=== PATIENT | male | born 1960 | race Caucasian/White ===

== ENCOUNTER 2016-09-02 12:57 | Emergency (ER) | payer BC ==
[~2016-09-02] VITALS: Ht 175.3 cm; Wt 80.0 kg
[2016-09-02 13:06] VITALS: BP 128/66; PULSE 46; RESP 16; TEMP 97.8; O2SAT 100
[2016-09-02] MEDS ORDERED: AVOD0.5C PO (13:13)
[2016-09-02] MEDS ORDERED: TRAZ50TA12 PO (13:13)
[2016-09-02] MEDS ORDERED: VENL75TA2 PO (13:13)
[2016-09-02] MEDS ORDERED: SODIUM CHLOR 0.9% 1000 ML INJ 1,000 ML IV SCH (13:42)
[2016-09-02] MEDS ORDERED: SODIUM CHLORIDE 0.9% FLUSH 10 ML FLUSH IV FLUSH PRN (13:45)
[2016-09-02 14:04] LABS: AUTOMATED NEUTROPHIL # 8.8 TH/MM3 (1.8-7.7); BASOPHIL % 0.3 % (0.0-2.0); EOSINOPHIL # 0.1 TH/MM3 (0-0.4); EOSINOPHIL % 0.8 % (0.0-4.0); HEMATOCRIT 43.9 % (39.0-51.0); LYMPH % 14.9 % (9.0-44.0); LYMPHOCYTE # 1.7 TH/MM3 (1.0-4.8); MEAN CELL VOLUME 95.4 FL (80.0-100.0); MEAN CORPUSCULAR HEMOGLOBIN 31.6 PG (27.0-34.0); MEAN CORPUSCULAR HGB CONC 33.1 % (32.0-36.0); PLATELET COUNT 208 TH/MM3 (150-450); RED CELL DISTRIBUTION WIDTH 12.9 % (11.6-17.2); WHITE BLOOD COUNT 11.2 TH/MM3 (4.0-11.0)
[2016-09-02 14:05] LABS: HEMO FLAGS DIFF FINAL
--- NOTE | 2016-09-02 14:09 | PD ---
HPI Chief Complaint: Dizziness Time Seen by Provider: 13:31 Travel History International Travel<30 days: No Contact w/Intl Traveler<30days: No Traveled to known affect area: No History of Present Illness HPI Patient is a 56-year-old male who was brought to the emergency room for evaluation of dizziness. 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 Reports that the marine service operator was telling them about abnormal crystals in his eyes, patient reports that he became very anxious and nervous and diaphoretic, reports that this always happens when he is being told some bad news. Reports that he could not continue with the eye exam and was brought to the emergency room for evaluation. Patient this time with no complaints, patient reports complete resolution of dizziness. Patient denies any headache, vision changes, denies any chest pain or shortness of breath. Patient reports that he thinks that he had his onset of symptoms as he was nervous about the "crystals in his eyes." [facility] Past Medical History Anxiety: Yes Diminished Hearing: No Tetanus Vaccination: Unknown Past Surgical History Surgical History: No Previous Surgery Social History Alcohol Use: No Tobacco Use: No Substance Use: No Allergies-Medications (Allergen,Severity, Reaction): Coded Allergies: No Known Allergies (Unverified , 09/02/16) Reported Meds & Prescriptions Reported Meds & Active Scripts Active Reported Venlafaxine ER 24 HR (Venlafaxine HCl) 75 Mg Tab 75 Mg PO DAILY Trazodone (Trazodone HCl) 50 Mg Tab 100 Mg PO HS Avodart (Dutasteride) 0.5 Mg Cap 0.5 Mg PO DAILY Review of Systems General / Constitutional: No: Fever Eyes: No: Visual changes HENT: No: Headaches Cardiovascular: No: Chest Pain or Discomfort Respiratory: No: Shortness of Breath Gastrointestinal: No: Abdominal Pain Genitourinary: No: Dysuria Musculoskeletal: No: Pain Skin: No Rash Neurologic: Positive: Dizziness, No: Weakness Psychiatric: No: Depression Endocrine: No: Polydipsia Hematologic/Lymphatic: No: Easy Bruising Physical Exam Narrative GENERAL: nad, nontoxic SKIN: Focused skin assessment warm/dry. HEAD: Atraumatic. Normocephalic. EYES: Pupils equal and round. No scleral icterus. No injection or drainage. Pupils are dilated ENT: No nasal bleeding or discharge. Mucous membranes pink and moist. NECK: Trachea midline. No JVD. CARDIOVASCULAR: Regular rate and rhythm. No murmur appreciated. RESPIRATORY: No accessory muscle use. Clear to auscultation. Breath sounds equal bilaterally. GASTROINTESTINAL: Abdomen soft, non-tender, nondistended. Hepatic and splenic margins not palpable. MUSCULOSKELETAL: No obvious deformities. No clubbing. No cyanosis. No edema. NEUROLOGICAL: Awake and alert. No obvious cranial nerve deficits. Motor grossly within normal limits. Normal speech. PSYCHIATRIC: Appropriate mood and affect; insight and judgment normal. Data Data Last Documented VS Vital Signs Date Time Temp Pulse Resp B/P Pulse Ox O2 Delivery O2 Flow Rate FiO2 09/02/16 14:15 56 16 120/68 100 Room Air 09/02/16 13:06 97.8 Orders Basic Metabolic Panel (Bmp) (09/02/16 13:42) Complete Blood Count With Diff (09/02/16 13:42) Iv Access Insert/Monitor (09/02/16 13:42) Ecg Monitoring (09/02/16 13:42) Sodium Chlor 0.9% 1000 Ml Inj (Ns 1000 M (09/02/16 13:42) Sodium Chloride 0.9% Flush (Ns Flush) (09/02/16 13:45) Labs Laboratory Tests Test 09/02/16 13:50 White Blood Count 11.2 TH/MM3 Red Blood Count 4.60 MIL/MM3 Hemoglobin 14.5 GM/DL Hematocrit 43.9 % Mean Corpuscular Volume 95.4 FL Mean Corpuscular Hemoglobin 31.6 PG Mean Corpuscular Hemoglobin 33.1 % Concent Red Cell Distribution Width 12.9 % Platelet Count 208 TH/MM3 Mean Platelet Volume 8.4 FL Neutrophils (%) (Auto) 79.0 % Lymphocytes (%) (Auto) 14.9 % Monocytes (%) (Auto) 5.0 % Eosinophils (%) (Auto) 0.8 % Basophils (%) (Auto) 0.3 % Neutrophils # (Auto) 8.8 TH/MM3 Lymphocytes # (Auto) 1.7 TH/MM3 Monocytes # (Auto) 0.6 TH/MM3 Eosinophils # (Auto) 0.1 TH/MM3 Basophils # (Auto) 0.0 TH/MM3 CBC Comment DIFF FINAL Differential Comment Sodium Level 139 MEQ/L Potassium Level 4.6 MEQ/L Chloride Level 105 MEQ/L Carbon Dioxide Level 25.2 MEQ/L Anion Gap 9 MEQ/L Blood Urea Nitrogen 19 MG/DL Creatinine 0.90 MG/DL Estimat Glomerular Filtration 87 ML/MIN Rate Random Glucose 102 MG/DL Calcium Level 8.2 MG/DL MDM Medical Decision Making Medical Screen Exam Complete: Yes Emergency Medical Condition: Yes Interpretation(s) Vital Signs Date Time Temp Pulse Resp B/P Pulse Ox O2 Delivery O2 Flow Rate FiO2 09/02/16 14:15 56 16 120/68 100 Room Air 09/02/16 14:15 Room Air 09/02/16 13:08 46 16 100 Room Air 09/02/16 13:06 97.8 46 16 128/66 100 Differential Diagnosis Dizziness could be secondary to electrolyte abnormalities versus anxiety reaction versus medication reaction from having his eyes dilated Narrative Course Patient is a 56-year-old male who presents to emergency room with complaints of dizziness after he had his eyes dilated and was told that he had crystals in his eyes. Reports that he could not complete his eye exam as he became diaphoretic as he and was brought directly to the emergency room. Patient at this time with no complaints, reports that he feels 100% better. Patient currently with a benign exam, no neurological deficits. Plan to monitor patient, will give IV fluids. Patient reports that when he gets the risks, he does get diaphoretic and worked up and thinks that this is what probably happened today. Vital Signs Date Time Temp Pulse Resp B/P Pulse Ox O2 Delivery O2 Flow Rate FiO2 09/02/16 14:15 56 16 120/68 100 Room Air 09/02/16 14:15 Room Air 09/02/16 13:08 46 16 100 Room Air 09/02/16 13:06 97.8 46 16 128/66 100 Laboratory Tests Test 09/02/16 13:50 White Blood Count 11.2 TH/MM3 (4.0-11.0) Red Blood Count 4.60 MIL/MM3 (4.50-5.90) Hemoglobin 14.5 GM/DL (13.0-17.0) Hematocrit 43.9 % (39.0-51.0) Mean Corpuscular Volume 95.4 FL (80.0-100.0) Mean Corpuscular Hemoglobin 31.6 PG (27.0-34.0) Mean Corpuscular Hemoglobin 33.1 % Concent (32.0-36.0) Red Cell Distribution Width 12.9 % (11.6-17.2) Platelet Count 208 TH/MM3 (150-450) Mean Platelet Volume 8.4 FL (7.0-11.0) Neutrophils (%) (Auto) 79.0 % (16.0-70.0) Lymphocytes (%) (Auto) 14.9 % (9.0-44.0) Monocytes (%) (Auto) 5.0 % (0.0-8.0) Eosinophils (%) (Auto) 0.8 % (0.0-4.0) Basophils (%) (Auto) 0.3 % (0.0-2.0) Neutrophils # (Auto) 8.8 TH/MM3 (1.8-7.7) Lymphocytes # (Auto) 1.7 TH/MM3 (1.0-4.8) Monocytes # (Auto) 0.6 TH/MM3 (0-0.9) Eosinophils # (Auto) 0.1 TH/MM3 (0-0.4) Basophils # (Auto) 0.0 TH/MM3 (0-0.2) CBC Comment DIFF FINAL Differential Comment Sodium Level 139 MEQ/L (136-145) Potassium Level 4.6 MEQ/L (3.5-5.1) Chloride Level 105 MEQ/L (98-107) Carbon Dioxide Level 25.2 MEQ/L (21.0-32.0) Anion Gap 9 MEQ/L (5-15) Blood Urea Nitrogen 19 MG/DL (7-18) Creatinine 0.90 MG/DL (0.60-1.30) Estimat Glomerular Filtration 87 ML/MIN (>89) Rate Random Glucose 102 MG/DL (74-106) Calcium Level 8.2 MG/DL (8.5-10.1) I reviewed all labs and studies with patient in detail. Patient completely asymptomatic at this time. Reports "I just want to go home and eat a big piece of meat." Patient ambulating emergency with normal gait. Patient will follow up with his primary care doctor and will return to emergency room as needed. Diagnosis Primary Impression: Dizziness Patient Instructions: General Instructions Additional Instructions: Please follow up with your primary care doctor Return to ER as needed Drink plenty of fluids Disposition: 01 DISCHARGE HOME Condition: Stable Shy Tse DO Sep 02, 2016 14:09
[2016-09-02 14:14] LABS: POTASSIUM 4.6 MEQ/L (3.5-5.1)
[2016-09-02 14:15] VITALS: BP 120/68; PULSE 56; RESP 16; O2SAT 100
[2016-09-02 14:17] LABS: BICARBONATE 25.2 MEQ/L (21.0-32.0)
== END 2016-09-02 15:17 | disposition home or self-care (01) ==
LOC: PHED 12:57
DX: R42 Dizziness and giddiness (principal)
CPT/HCPCS: 80048; 85025; 96360; 99284; J7030